=== PATIENT | female | born 1955 | race Caucasian/White ===

== ENCOUNTER 2020-04-08 05:11 | Inpatient (IN) ==
--- NOTE | 2020-03-11 11:39 | History & Physical Report ---
Date of Service March 11, 2020 date of surgery: 04-08-20 Procedure: Right total knee replacement Assessment & Plan (1) Arthritis of right knee: Risks and benefits of procedure discussed in detail today, patient would like to proceed with a Right total knee replacement at [facility] as scheduled. will obtain medical clearance and cardiac clearance prior to surgery, she has h/o ASD in approximately 1999, as well as obtain PATs at [facility]. Will place on ASA 81mg po bid x 1 month post op, f/u 2 weeks post op for routine post-operative care and x-ray, sooner if having any problems. will make arrangements for HHPT at the time of discharge. At this point in time, has failed conservative measures and would like to proceed with surgical intervention. History of Present Illness Chief Complaint: Right knee pain Primary Care Provider: Amauri Martin Ms Cooley is a 64 year old female who is here for a follow up of right knee pain, presents for pre-op evaluation prior to a Right total knee replacement at [facility]. Her symptoms occur constantly with intermittent worsening. Currently the patient states that the symptoms are moderate-severe. The pain is described as aching, sharp and throbbing. The symptoms occur continuously. She rates her current pain as 5/10. The symptoms are aggravated by ascending stairs, descending stairs, daily activities, driving, first steps while awake, kneeling, movement, repetitive activities, sleeping on the affected side, squatting, standing, walking and weight bearing. In addition to right knee pain the patient is also experiencing decreased mobility, difficulty bending, difficulty going to sleep, limping, nighttime awakening, pain, stiffness, tenderness and weakness. Prior NSAIDs include Celebrex and Advil. Patient has been treated with previous visco supplementation, Synvisc One. Patient has had previous therapy. she has failed conservative measures and would like to proceed with a right TKA. Allergies Allergy/AdvReac Type Severity Reaction Status Date / Time adhesive Allergy Unknown BUBBLES ON Verified 10/01/19 11:48 SKIN, ITCHY, WELTS succinylcholine Allergy Unknown SEE NOTES Verified 10/01/19 11:48 BELOW azithromycin AdvReac Unknown STOMACH Verified 10/01/19 11:48 UPSET erythromycin base AdvReac Unknown STOMACH Verified 10/01/19 11:48 UPSET Home Medications Home Medications Medication Instructions Recorded Confirmed Type albuterol sulfate [Proventil HFA] 2 inh INHALATION UD PRN 10/01/19 10/01/19 History celecoxib [Celebrex] 200 mg PO BID 10/01/19 10/01/19 History cholecalciferol (vitamin D3) 50 mcg PO DAILY 10/01/19 10/01/19 History [Vitamin D3] coenzyme Q10 [CoQ-10] 100 mg PO DAILY 10/01/19 10/01/19 History fluticasone propion-salmeterol 2 puff INHALATION BID 10/01/19 10/01/19 History [Advair HFA] glucos sul [id number] 3 cap PO DAILY 10/01/19 10/01/19 History [Glucosamine Chondroitin] hydrochlorothiazide 12.5 mg PO Q2D 10/01/19 10/01/19 History hydrochlorothiazide 25 mg PO Q2D 10/01/19 10/01/19 History levothyroxine [Synthroid] 175 mcg PO QAM 10/01/19 10/01/19 History omeprazole 20 mg PO UD PRN 10/01/19 10/01/19 History phentermine 37.5 mg PO QAM 10/01/19 10/01/19 History potassium gluconate 595 mg PO DAILY 10/01/19 10/01/19 History Past Med/Surg History Medical History Arthritis Asthma Advair BID, albuterol 3-4x per week, depends on activity level and weather Fear of anesthetic FEAR OF SPINAL, FEAR OF WAKING UP TOO SOON , ANXIOUS BEFORE PROCEDURES Hearing loss LIMITED - R Heart valve regurgitation Mild TR on 2016 echo per cardio note Heartburn OCC, DIETARY DEPENDANT - OMEPRAZOLE PRN History of atrial septal defect Lumbar spinal stenosis Obesity Pulmonary hypertension Thyroid disease Thyroid nodule DX AUG 2019 Vitamin D deficiency Surgical History Family history of reaction to anesthesia SISTER - CARDIAC ARREST AFTER SUCCINYLCHOLINE - WAS TOLD BY ANESTHESIOLOGIST THAT NONE OF HER FAMILY SHOULD HAVE SUCCINYLCHOLINE History of appendectomy History of cardiac cath 1999 - PRIOR TO OPEN HEART SURGERY History of colonoscopy History of ear surgery R History of heart surgery OPEN HEART FOR ASD REPAIR , HAD TEMPORARY PACEMAKER AND REMOVED BEFORE DISCHARGE History of tonsillectomy Nausea and vomiting after administration of anesthetic agent Family History Sister Family history of rheumatoid arthritis Brother Family history of rheumatoid arthritis Sister Family history of colon cancer Other Family history of osteoporosis in mother Social History Smoking Status: Never smoker Hx Alcohol Use: Yes Hx Substance Use: No Preferred Language: Portuguese Communication Ability: Effective Engineering Clerk Required: No Beliefs That Will Affect Care: None Current Living Situation: Significant Other Feels Safe at Home: Yes Review of Systems Review of Systems: All systems reviewed & are unremarkable except as noted in HPI & below Constitutional: no fever, no chills and no sweats Respiratory: no cough and no dyspnea Cardiovascular: no chest pain, no dyspnea and no orthopnea Gastrointestinal: no abdominal pain, no nausea and no vomiting Musculoskeletal: as per Subjective / HPI Physical Exam Physical Exam: Ht: 5ft 8in Wt: 108.8kg BP: 146/82 Pulse: 90 Constitutional: WD/WN, vitals as above no acute distress Respiratory: normal respiratory effort, lungs clear to auscultation no respiratory distress, no labored breathing and does not use accessory muscles Cardiovascular: RRR, no murmur, no edema Gastrointestinal (Abdomen): normal bowel sounds, soft, nontender, no hepatosplenomegaly Musculoskeletal: Knee: + knee abnormal to inspection (Right knee- ), + effusion (+1 effusion), + limited ROM of knee (ROM 0/3/110), + knee ROM with crepitation, + joint line tenderness (medial joint line) and + Corey's sign positive; no deformity, no skin erythema, no ecchymosis, no valgus laxity, no varus laxity, anterior drawer test negative, Edith's sign negative and pivot shift test negative Results & Data Results & Data ([facility]) Diagnostic Findings Right Knee X-ray 09/13/19 showing advanced degenerative changes to the right knee, narrowing of the medial compartment and patello-femoral joint with patellar spurring noted, findings showing joint space narrowing of the medial compartment and patello-femoral joint, osteophyte formation and subchondral scle rosis noted. overall varus alignment. no acute bony pathology noted.
--- NOTE | 2020-04-06 10:08 | Anesthesiology Consultation ---
Date of Service April 06, 2020 Assessment & Plan (1) Encounter for pre-operative examination: Chart Review Chart Review: Acceptable Risk for Surgery (pending preop Covid testing 04/03 and anesthesia eval AM of surgery) and Patient NOT seen in Pre Admission Testing Pt has presumed succinylcholine allergy due to sister having cardiac arrest due to med. Was told she should never have succinylcholine. 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 Pt is hesitant about having SAB per records. Will leave to anesthesiologist's discretion after discussion with patient AM of surgery on type of anesthesia to be done. -Pt's surgery initially scheduled in October 2019- rescheduled due to Covid. Per nursing assessment 04/03/2020, patient resides in [facility]. Travels only to [facility] for medical appts. Uses PPE. Scheduled for preop Covid testing 04/03/20 PCP note 10/16/19= Pt cleared by cardio yesterday for upcoming surgery. "I believe patient to be an acceptable risk for surgery." Seen by cardio 10/15/19= "she has no cardiac symptoms, had a benign cardiac examination today, was clinically euvolemic and has reasonable functional status, despite her severely arthritic knees. We should proceed with her surgery, excepting the cardiovascular risk involved. Ischemic evaluation is not merited." HTN management deferred to PCP. History Surgery Operation Date: 04/08/20 07:00 Proposed Procedures p Right Total Knee Arthroplasty - Carlos Olvera, Height/Weight Height: 5 ft 8 in Weight: 90.718 kg Allergies Allergy/AdvReac Type Severity Reaction Status Date / Time adhesive Allergy Unknown BUBBLES ON Verified 04/03/20 12:52 SKIN, ITCHY, WELTS succinylcholine Allergy Unknown SEE NOTES Verified 04/03/20 12:52 BELOW azithromycin AdvReac Unknown STOMACH Verified 04/03/20 12:52 UPSET erythromycin base AdvReac Unknown STOMACH Verified 04/03/20 12:52 UPSET Medications Home Medications Medication Instructions Recorded Confirmed Last Taken albuterol sulfate [Proventil HFA] 2 inh INHALATION UD PRN 10/01/19 04/03/20 Unknown celecoxib [Celebrex] 200 mg PO BID 10/01/19 04/03/20 Unknown cholecalciferol (vitamin D3) 50 mcg PO QAM 10/01/19 04/03/20 Unknown [Vitamin D3] coenzyme Q10 [CoQ-10] 100 mg PO QAM 10/01/19 04/03/20 Unknown fluticasone propion-salmeterol 2 puff INHALATION BID 10/01/19 04/03/20 Unknown [Advair HFA] glucos sul [id number] 3 cap PO DAILY 10/01/19 04/03/20 Unknown [Glucosamine Chondroitin] hydrochlorothiazide 12.5 mg PO UD 10/01/19 04/03/20 Unknown levothyroxine [Synthroid] 175 mcg PO QAM 10/01/19 04/03/20 Unknown omeprazole 20 mg PO UD PRN 10/01/19 04/03/20 Unknown phentermine 37.5 mg PO QAM 10/01/19 04/03/20 Unknown potassium gluconate 595 mg PO QAM 10/01/19 04/03/20 Unknown calcium carbonate [Calcium 600] 600 mg PO QAM 04/03/20 04/03/20 Unknown Past Medical History Medical History (Updated 04/06/20 @ 09:57 by Maida Daniel PA-C) Arthritis Asthma Advair BID, albuterol 3-4x per week, depends on activity level and weather Fear of anesthetic FEAR OF SPINAL, FEAR OF WAKING UP TOO SOON , ANXIOUS BEFORE PROCEDURES Hearing loss LIMITED - R Heart valve regurgitation Mild TR on 2015 echo per cardio note Heartburn OCC, DIETARY DEPENDANT - OMEPRAZOLE PRN Hypothyroidism Lumbar spinal stenosis Obesity Pulmonary hypertension Thyroid nodule DX AUG 2019- REFERRED TO ENDO Past Family History Family History Sister Family history of rheumatoid arthritis Brother Family history of rheumatoid arthritis Sister Family history of colon cancer Other Family history of osteoporosis in mother Past Surgical History Surgical History Family history of reaction to anesthesia SISTER - CARDIAC ARREST AFTER SUCCINYLCHOLINE - WAS TOLD BY ANESTHESIOLOGIST THAT NONE OF HER FAMILY SHOULD HAVE SUCCINYLCHOLINE History of appendectomy History of atrial septal defect repair of ASD History of cardiac cath 1999 - PRIOR TO OPEN HEART SURGERY History of colonoscopy History of ear surgery R History of heart surgery OPEN HEART FOR ASD REPAIR , HAD TEMPORARY PACEMAKER AND REMOVED BEFORE DISCHARGE History of tonsillectomy Hx of breast biopsy stage 0 of cancer and was removed and had radiation x 30 - finished 01/2020 Nausea and vomiting after administration of anesthetic agent Social History Smoking Status: Never smoker Do You Dip or Chew Tobacco: No Hx Alcohol Use: Yes alcohol intake frequency: holidays/special occasions only Hx Substance Use: No substance use type: does not use Testing Laboratory Results 03/12/20= WBC: 6.94 H/H: 13.2/38.7 PLATELETS: 293 SODIUM: 138 POTASSIUM: 3.5 CHLORIDE: 102 CO2: 29.1 BUN: 16.8 CREATININE: 0.71 GLUCOSE: 97 HGB A1C: 5.5 PT: 11.7 PTT: 34.5 INR: 1.02 UA: Trace blood, 30 UA protein, trace leukocyte esterase Electrocardiogram Date: 10/15/19 SR at [address]/T abnormality Chest X-Ray Date: 10/07/19 Findings: + NAD and + cardiomegaly (mild) Echocardiogram Date: 07/21/16 EF: 60% LV Function: normal RWMA: + none Normal RV size and systolic function. Mild TR, RV systolic pressure= 29mmHg. No obvious atrial septal defect seen and no shunt seen with color through the interatrial septum, agitated saline was not used.
[2020-04-08] MEDS ORDERED: CEFAZOLIN 2000MG 2,000 MG/15 ML SYR IV SCH (06:00)
[2020-04-08] MEDS ORDERED: TRANEXAMIC ACID 1,000 MG **IV Intra-op IV SCH (06:00)
[2020-04-08] MEDS ORDERED: GABAPENTIN 600 MG DOSE PO SCH (06:00)
[2020-04-08] MEDS ORDERED: CeleBREX 200 MG CAP PO SCH (06:00)
[2020-04-08] MEDS ORDERED: LR 15ML/HR IV SCH (06:00)
[2020-04-08] MEDS ORDERED: METOCLOPRAMIDE HCL 10 MG TABLET PO SCH (06:00)
[2020-04-08] MEDS ORDERED: ROPIVACAINE 0.5% HCL/PF 150 MG, BUPIVACAINE 0.5% MPF 30 ML, EPINEPHrine 30MG/30ML (OR U... INSTIL SCH (06:00)
[2020-04-08] MEDS ORDERED: ACETAMINOPHEN 500 MG TAB PO SCH (06:00)
[2020-04-08] MEDS ORDERED: dexAMETHasone 4 MG TAB PO SCH (06:00)
[2020-04-08] MEDS ORDERED: TRANEXAMIC ACID 1,000 MG **IV Pre-op IV SCH (06:00)
[2020-04-08] MEDS ORDERED: FAMOTIDINE 20 MG TAB PO SCH (06:00)
[2020-04-08] MEDS ORDERED: MIDAZOLAM HCL 1 MG/ML 2ML VIAL ONE (06:20)
[2020-04-08] MEDS ORDERED: fentaNYL citrate 100 MCG/2 ML VIAL ONE (06:20)
[2020-04-08] MEDS ORDERED: ONDANSETRON INJ 2 MG/ML 2 ML VIAL ONE (06:21)
[2020-04-08] MEDS ORDERED: PROPOFOL IV EMULSION 10 MG/ML 20 ML VIAL IV ONE (06:21)
[2020-04-08] MEDS ORDERED: LIDOCAINE HCL 2% 2 ML VIAL/AMP(20MG/ML) INFIL ONE (06:21)
[2020-04-08] MEDS ORDERED: ROPIVACAINE 0.5% 5 MG/ML 30 ML VIAL ONE (06:26)
[2020-04-08] MEDS ORDERED: BUPIVACAINE 0.5 % 5 MG/1 ML PF 10ML VIAL ONE (06:26)
[2020-04-08] MEDS ORDERED: ORTHO JOINT ANESTHETIC ONE (06:41)
[2020-04-08] MEDS ORDERED: BACITRACIN INJ 50,000 UNIT VIAL ONE (06:41)
[2020-04-08] MEDS ORDERED: ONDANSETRON INJ 2 MG/ML 2 ML VIAL IV PRN ×2 (06:50→11:15)
[2020-04-08] MEDS ORDERED: KETOROLAC 30 MG/ML VIAL IV PRN (06:50)
[2020-04-08] MEDS ORDERED: ATROPINE SULFATE 0.1 MG/ML 10ML SYR IV PRN (06:50)
[2020-04-08] MEDS ORDERED: HYDROmorphone INJ 1 MG/ML SYRINGE IV PRN ×2 (06:50→11:15)
[2020-04-08] MEDS ORDERED: ePHEDrine sulfate 50 MG/ML AMP IV PRN (06:50)
--- NOTE | 2020-04-08 07:11 | History & Physical Bridge Note ---
Date of Service April 08, 2020 History & Physical Bridge Note I have examined the patient, reviewed the History & Physical and in the interval since the performance of the History & Physical I have noted the following changes of clinical significance: no changes noted
--- NOTE | 2020-04-08 08:25 | Operative Report ---
Post Operative Report Pre & Post Diagnosis Operation Date: 04/08/20 07:00 Pre-Op Diagnosis: Unilateral Primary Osteoarthritis, Right Knee Post-Op Diagnosis: Unilateral Primary Osteoarthritis, Right Knee I identified the patient and participated in the time-out.: Yes Procedure Utilizing [employer] journey 2 patient matched total knee arthroplasty size 5 femur 4 tibia 11 polyethylene 32 oval patella Operation Date: 04/08/20 07:00 Actual Procedures p Right Total Knee Arthroplasty(Right) utilizing [employer] journey 2 patient matched total knee arthroplasty size 5 femur 4 tibia 11 polyethylene 32 oval patella- Carlos Olvera DO Surgeon Carlos Olvera DO Solutions Sales Consultant [employer] Estimated Blood Loss 5 Findings Consistent with Post-Op Diagnosis Patient presents severe end-stage DJD right knee varus alignment subchondral sclerosis marginal osteophytes eburnated [id number] with a moderate to large effusion no response to conservative management Specimens Bone and cartilage Drains Medium bore Hemovac Anesthesia Type MAC Spinal Regional Complications none Disposition Accompanied Patient To Recovery: No Disposition: Recovery Room Indications Patient presents with severe end-stage DJD right knee no response to conservative management clinic physical therapy anti-inflammatories relative rest activity modification corticosteroid injection Visco supplementation the above intraoperative findings are noted Description of Procedure After proper prepping and draping of the Right lower extremity anterior midline incision was made over the region of the extensor extensor mechanism after meticulous hemostasis was obtained and maintained in subcutaneous tissues a medi al parapatellar incision was made The patella was subluxed lateralward the medial lateral gutter were cleaned from any hypertrophic synovitis and scar tissue of the distal femoral block was placed and the distal femoral osteotomy cut was made subsequently the chamfers anterior and posterior osteotomy cuts were made utilizing the 4-in-1 block the tibia was subsequently subluxed anteriorward medial and ateral meniscal remnants were excised in their entirety remnants of the anterior and posterior cruciate ligaments were excised in their entirety excellent exposure of the proximal tibia was obtained the tibial osteotomy guide was placed on the proximal tibial osteotomy cut was made once again the knee was irrigated with copious amounts of sterile saline solution the patella was subsequently everted lateralward thickened scar tissue around the patella was removed the patella was subsequently cut utilizing a freehand technique and was drilled prepared for final preparation and placement of patella socially flexion-extension gaps were checked and the equal and symmetric trials were placed to the appropriate femoral and tibial trials with poly-spacer being placed for equal flexion and extension gaps and full range of motion including extension to 0 and flexion to 140 the trial components after having been taken to recovery range of motion was subsequently removed meticulous hemostasis was obtained and maintained subsequently a knee block injection of joint cocktail including ropivacaine 0.5% 150 mg. Bupivacaine 0.5% epinephrine 1-200,030 mL's toradol 30 mg dexamethasone 4 mg ketamine 10 mg clonidine 100 micrograms normal saline solution 30 mg was infiltrated into the soft tissues of the posterior knee medial lateral gutters and periosteal synovium special attention was paid to protect neurovascular structures at all times subsequently trial components having been removed the knee was irrigated with sterile saline solution. debris was removed the proximal tibia was subsequently prepared and was made ready for the placement of the tibial component tibial component was also cemented and tamped into position the femoral component was subsequently placed and cemented in the position the patellar component was subsequently cemented in position because hemostasis once again obtained and maintained wound having been thoroughly irrigated with debridement and debridement lavage was performed as well as a medial parapatellar incision closed with #1 Vicryl in interrupted fashion subcutaneous was closed with #2 Vicryl skin was closed with skin clips. PA-C was necessary for prepping and drapping as well as wound closure of deep fascia Sub cutaneous tissue and skin and was necessary for the case. A sterile compressive dressing was placed patient was taken to recovery in stable condition of report dictated by Wade I attest to the content of the Intraoperative Record and any orders documented therein. Any exceptions are noted below. I attest to the content of the Intraoperative Record and any orders documented therein. Any exceptions are noted below.
--- NOTE | 2020-04-08 08:26 | Operative Report ---
Post Operative Report Pre & Post Diagnosis Operation Date: 04/08/20 07:00 Pre-Op Diagnosis: Unilateral Primary Osteoarthritis, Right Knee Post-Op Diagnosis: Unilateral Primary Osteoarthritis, Right Knee I identified the patient and participated in the time-out.: Yes Procedure Operation Date: 04/08/20 07:00 Actual Procedures p Right Total Knee Arthroplasty(Right) utilizing [employer] journey 2 patient matched total knee arthroplasty size 5 femur 4 tibia 11 polyethylene 32 over patella- Carlos Olvera DO Surgeon Carlos Olvera DO Senior Systems Architect [employer] Estimated Blood Loss 5 Findings Consistent with Post-Op Diagnosis Patient presents with severe end-stage DJD eburnated bone subchondral sclerosis marginal osteophytes subchondral cystic changes varus alignment marginal moderate to large effusion Specimens Bone card Anesthesia Type MAC Spinal Regional Complications none Disposition Accompanied Patient To Recovery: No Disposition: Recovery Room Indications Patient presents after failed attempted conservative management the above intraoperative findings noted patient fell attempted corticosteroid injection Visco supplementation relative rest activity modification Description of Procedure After proper prepping and draping of the Right lower extremity anterior midline incision was made over the region of the extensor extensor mechanism after meticulous hemostasis was obtained and maintained in subcutaneous tissues a medial parapatellar incision was made The patella was subluxed lateralward the medial lateral gutter were cleaned from any hypertrophic synovitis and scar tissue of the distal femoral block was placed and the distal femoral osteotomy cut was made subsequently the chamfers anterior and posterior osteotomy cuts were made utilizing the 4-in-1 block the tibia was subsequently subluxed anteriorward medial and ateral meniscal remnants were excised in their entirety remnants of the anterior and posterior cruciate ligaments were excised in their entirety excellent exposure of the proximal tibia was obtained the tibial osteotomy guide was placed on the proximal tibial osteotomy cut was made once again the knee was irrigated with copious amounts of sterile saline solution the patella was subsequently everted lateralward thickened scar tissue around the patella was removed the patella was subsequently cut utilizing a freehand technique and was drilled prepared for final preparation and placement of patella socially flexion-extension gaps were checked and the equal and symmetric trials were placed to the appropriate femoral and tibial trials with poly-spacer being placed for equal flexion and extension gaps and full range of motion including extension to 0 and flexion to 140 the trial components after having been taken to recovery range of motion was subsequently removed meticulous hemostasis was obtained and maintained subsequently a knee block injection of joint cocktail including ropivacaine 0.5% 150 mg. Bupivacaine 0.5% epinephrine 1-200,030 mL's toradol 30 mg dexamethasone 4 mg ketamine 10 mg clonidine 100 micrograms normal saline solution 30 mg was infiltrated into the soft tissues of the posterior knee medial lateral gutters and periosteal synovium special attention was paid to protect neurovascular structures at all times subsequently trial components having been removed the knee was irrigated with sterile saline solution. debris was removed the proximal tibia was subsequently prepared and was made ready for the placement of the tibial component tibial component was also cemented and tamped into position the femoral component was subsequently placed and cemented in the position the patellar component was subsequently cemented in position because hemostasis once again obtained and maintained wound having been thoroughly irrigated with debridement and debridement lavage was performed as well as a medial parapatellar incision closed with #1 Vicryl in interrupted fashion subcutaneous was closed with #2 Vicryl skin was closed with skin clips. PA-C was necessary for prepping and drapping as well as wound closure of deep fascia Sub cutaneous tissue and skin and was necessary for the case. A sterile compressive dressing was placed patient was taken to recovery in stable condition of report dictated by Wade I attest to the content of the Intraoperative Record and any orders documented therein. Any exceptions are noted below. I attest to the content of the Intraoperative Record and any orders documented therein. Any exceptions are noted below.
--- NOTE | 2020-04-08 09:47 | XRay Report ---
RIGHT KNEE 2 VIEWS History: Right total knee arthroplasty. Degenerative arthritis. Postop. FINDINGS: The patient is status post a right total knee arthroplasty. The hardware is intact. No frac ture or dislocation. Skin tank and surgical drains are in place. IMPRESSION: Right total knee arthroplasty. No evidence for hardware complication. ACT 112: Negative or not required by law. Electronically signed by: Ken Calabrese M.D. 04/08/2020 9:45 AM
--- NOTE | 2020-04-08 10:46 | Anesthesiology Progress Note ---
Date of Service April 08, 2020 Anesthesia Post Procedure Vital Signs Vital Signs: Temp Pulse Pulse Resp BP Pulse Ox 04/08/20 10:25 79 19 119/63 93 04/08/20 10:15 77 1 L 112/59 L 97 04/08/20 10:05 80 13 121/62 96 04/08/20 09:55 36.5 C 87 19 111/78 97 04/08/20 09:45 76 13 122/71 97 04/08/20 09:35 89 12 123/76 93 04/08/20 09:25 82 20 133/69 97 04/08/20 09:15 86 18 125/68 97 04/08/20 09:05 36.6 C 94 H 18 114/60 98 04/08/20 05:41 37.2 C 99 H 20 168/88 H 97 Transfer of Care Handoff Completed per policy Notes Mental Status: alert / awake / arousable Patient Amnestic to Procedure: Yes Nausea / Vomiting: adequately controlled Pain: adequately controlled Airway Patency, RR, SpO2: stable & adequate BP & HR: stable & adequate Hydration State: stable & adequate Neuraxial Anesthesia: was administered and sensory block is resolving Anesthetic Complications: no major complications apparent
[2020-04-08] MEDS ORDERED: NON-FORMULARY MEDICATION (Potassium Gluconate 595 MG) PO SCH (10:52)
[2020-04-08] MEDS ORDERED: ALBUTEROL HFA 8 GM INHALER INH PRN (10:52)
[2020-04-08] MEDS ORDERED: NALOXONE HCL 0.4 MG/1 ML VIAL/CARP IV PRN (11:15)
[2020-04-08] MEDS ORDERED: ALUMINUM/MAGNESIUM SUSP 30 ML UDC PO PRN (11:15)
[2020-04-08] MEDS ORDERED: METOCLOPRAMIDE HCL INJ 5 MG/ML 2 ML VIAL IV PRN (11:15)
[2020-04-08] MEDS ORDERED: MAGNESIUM HYDROXIDE SUSP 30 ML UDC PO PRN (11:15)
[2020-04-08] MEDS ORDERED: bisacodyL 10 MG SUPP PR PRN (11:15)
[2020-04-08] MEDS: SODIUM CHLORIDE 0.9% 1000ML 1,000 ML IV SCH ×2 (11:17→19:59)
[2020-04-08] MEDS: KETOROLAC TROMETHAMINE 15 MG/ML VIAL IV SCH ×2 (13:00→17:58)
[2020-04-08] MEDS: ASPIRIN 81 MG ECTAB PO SCH ×2 (13:00→19:58)
[2020-04-08] MEDS: ACETAMINOPHEN 500 MG TAB PO SCH ×2 (13:05→21:25)
[2020-04-08] MEDS: CEFAZOLIN 2000MG 2,000 MG/15 ML SYR IV SCH ×2 (16:15→22:16)
[2020-04-08] MEDS: DOCUSATE SODIUM 100 MG CAP PO SCH (19:57)
[2020-04-08] MEDS ORDERED: SENNA 8.6 MG TAB PO SCH (21:00)
[2020-04-08] MEDS: ADVAIR INH SCH (21:24)
[2020-04-09] MEDS: KETOROLAC TROMETHAMINE 15 MG/ML VIAL IV SCH ×2 (00:28→06:13)
[2020-04-09 05:57] LABS: Hematocrit (blood only) 32.9 % (37-47); Mean Corpuscular Hemoglobin 28.6 pg (25-34); Mean Corpuscular Hgb Conc 33.4 g/dL (32-36); Mean Corpuscular Volume 85.5 fL (80-100); Mean Platelet Volume 9.2 fL (7.4-10.4); Platelet Count 244 K/uL (130-400); RDW Coefficient of Variation 13.7 % (11.5-14.5); RDW Standard Deviation 42.4 fL (36.4-46.3); Red Blood Count 3.85 M/uL (4.2-5.4)
[2020-04-09] MEDS: ACETAMINOPHEN 500 MG TAB PO SCH ×2 (06:14→14:24)
[2020-04-09] MEDS ORDERED: LEVOTHYROXINE SODIUM 175 MCG TABLET PO SCH (06:30)
[2020-04-09 06:37] LABS: BUN Creatinine Ratio 22.2 (10-20); Calcium 8.7 mg/dl (8.5-10.1); Creatinine Clr Calc Pharmacy 143.6 ml/min; Est GFR (African American) 115.8; Est GFR (Non-African American) 99.9
--- NOTE | 2020-04-09 06:58 | Orthopedic Progress Note ---
Date of Service April 09, 2020 Assessment & Plan (1) History of total right knee replacement: POD #1 s/p Right TKA pt/ot dvt proph with JUANJOSE/SCD/ASA plan for d/c home with OPPT, will recheck after PT today. Admission and Anticipated Discharge Date Admission Date: April 08, 2020 Subjective POD #1 s/p Right TKA Review of Systems Constitutional: no fever, no chills and no sweats Respiratory: no cough and no dyspnea Cardiovascular: no chest pain and no dyspnea Gastrointestinal: no abdominal pain, no nausea and no vomiting Physical Exam Physical Exam: Vital Signs Temp 36.6 C 04/09/20 03:59 Pulse 85 04/09/20 03:59 Resp 20 04/09/20 03:59 BP 109/64 04/09/20 03:59 Pulse Ox 97 04/09/20 03:59 Intake & Output 04/08/20 04/08/20 04/09/20 06:59 18:59 06:59 Intake Total 1400 / 3880 2480 / 3880 Output Total 185 / 1135 950 / 1135 Balance 1215 / 2745 1530 / 2745 Weight 122.4 kg Intake: IV 900 / 2770 1870 / 2770 Lr 1,000 ml @ 15 mls/hr IV . 700 / 700 Q24H [facility] Rx#:[id number] Nss 1000ML 1,0 00 ml @ 100 mls/ 1870 / 1870 hr IV .Q10H [facility] Rx#:[id number] TRANEXAMIC ACI D / 0.7% NACL 1, 200 / 200 000 mg In 100 ml @ 600 mls/hr IV TODAY@0600 [facility] Rx#:[id number] IV Perioperative 500 / 500 Oral 610 / 610 Output: Urine 625 / 625 Emesis 150 / 150 Estimated Blood Loss 5 / 5 Drain Output 30 / 355 325 / 355 Right Knee Hem ovac 30 / 355 325 / 355 Other: # Unmeasured Voi ds 1 1 # Emeses 1 Constitutional: WD/WN, vitals as above no acute distress Musculoskeletal: Right Leg: NVDI, calf SNT, negative candice sign. DP palpable, able to wiggle toes/ankle movement without difficulty. dressing clean dry and intact. Results & Data ([facility]) Vital Signs (Past 12 Hours) Vital Signs Temp Pulse Resp BP BP Pulse Ox 04/09/20 03:59 36.6 C 85 20 109/64 97 04/08/20 23:15 36.5 C 75 20 103/64 97 04/08/20 19:38 36.5 C 80 20 119/71 98 Laboratory Results Laboratory Results WBC 11.50 K/uL (4.8-10.8) H 04/09/20 05:37 RBC 3.85 M/uL (4.2-5.4) L 04/09/20 05:37 Hgb 11.0 g/dL (12.0-16.0) L 04/09/20 05:37 Hct 32.9 % (37-47) L 04/09/20 05:37 MCV 85.5 fL (80-100) 04/09/20 05:37 MCH 28.6 pg (25-34) 04/09/20 05:37 MCHC 33.4 g/dL (32-36) 04/09/20 05:37 RDW Std Deviation 42.4 fL (36.4-46.3) 04/09/20 05:37 RDW Coeff of Gayla 13.7 % (11.5-14.5) 04/09/20 05:37 Plt Count 244 K/uL (130-400) 04/09/20 05:37 MPV 9.2 fL (7.4-10.4) 04/09/20 05:37 Sodium 142 mmol/L (136-145) 04/09/20 05:37 Potassium 4.0 mmol/L (3.5-5.1) 04/09/20 05:37 Chloride 111 mmol/L (98-107) H 04/09/20 05:37 Carbon Dioxide 26 mmol/L (21-32) 04/09/20 05:37 Anion Gap 5.0 (3-11) 04/09/20 05:37 BUN 12 mg/dl (7-18) 04/09/20 05:37 Creatinine 0.56 mg/dl (0.6-1.2) L 04/09/20 05:37 Est Cr Clr Drug Dosing 143.6 ml/min 04/09/20 05:37 Est GFR ( Amer) 115.8 04/09/20 05:37 Est GFR (Non-Af Amer) 99.9 04/09/20 05:37 BUN/Creatinine Ratio 22.2 (10-20) H 04/09/20 05:37 Glucose 114 mg/dl (70-99) H 04/09/20 05:37 Calcium 8.7 mg/dl (8.5-10.1) 04/09/20 05:37 Blood Type O Negative 04/08/20 05:37 Antibody Screen NEGATIVE 04/08/20 05:37 Diagnostic Findings RIGHT KNEE 2 VIEWS History: Right total knee arthroplasty. Degenerative arthritis. Postop. FINDINGS: The patient is status post a right total knee arthroplasty. The chilo dware is intact. No fracture or dislocation. Skin tank and surgical drains are in place. IMPRESSION: Right total knee arthroplasty. No evidence for hardware complication.
[2020-04-09] MEDS ORDERED: CALCIUM 600MG + VIT D 400 IU TAB PO SCH (09:00)
[2020-04-09] MEDS ORDERED: MULTIVITAMIN TAB PO SCH (09:00)
[2020-04-09] MEDS ORDERED: FLUTICASONE/VILANTEROL 200/25MCG 14 PUFFS/INHALER INH SCH (09:00)
[2020-04-09] MEDS ORDERED: CeleBREX 200 MG CAP PO SCH (09:00)
[2020-04-09] MEDS: ADVAIR INH SCH (09:35)
[2020-04-09] MEDS: ASPIRIN 81 MG ECTAB PO SCH (09:36)
[2020-04-09] MEDS: DOCUSATE SODIUM 100 MG CAP PO SCH (09:37)
[2020-04-09] MEDS: OXYCODONE HCL IR 5 MG TAB (IMMEDIATE RELEASE) PO PRN ×2 (10:02→14:27)
--- NOTE | 2020-04-10 07:16 | Discharge Summary ---
Date of Service date of discharge: April 09, 2020 date of admission: 04-08-20 Admission HPI Per Admitting Provider Ms Cooley is a 64 year old female who is here for a follow up of right knee pain, presents for pre-op evaluation prior to a Right total knee replacement at [facility]. Her symptoms occur constantly with intermittent worsening. Currently the patient states that the symptoms are moderate-severe. The pain is described as aching, sharp and throbbing. The symptoms occur continuously. She rates her current pain as 5/10. The symptoms are aggravated by ascending stairs, descending stairs, daily activities, driving, first steps while awake, kneeling, movement, repetitive activities, sleeping on the affected side, squatting, standing, walking and weight bearing. In addition to right knee pain the patient is also experiencing decreased mobility, difficulty bending, difficulty going to sleep, limping, nighttime awakening, pain, stiffness, tenderness and weakness. Prior NSAIDs include Celebrex and Advil. Patient has been treated with previous visco supplementation, Synvisc One. Patient has had previous therapy. she has failed conservative measures and would like to proceed with a right TKA. Principal Diagnosis right knee osteoarthritis Discharge Exam Vital Signs Temp 36.7 C 04/09/20 15:35 Pulse 75 04/09/20 15:35 Resp 16 04/09/20 15:35 BP 119/71 04/09/20 15:35 Pulse Ox 97 04/09/20 15:35 Intake & Output 04/09/20 04/10/20 04/10/20 18:59 06:59 18:59 Intake Total 440 / 440 Output Total 100 / 100 Balance 340 / 340 Weight 122.4 kg Intake: Oral 440 / 440 Output: Drain Output 100 / 100 Right Knee Hemovac 100 / 100 Other: # Unmeasured Voids 1 Constitutional WD/WN, vitals as above no acute distress Musculoskeletal right knee: NVDI, calf SNT, negative candice sign. DP palpable, able to wiggle toes/ankle movement without difficulty. PAUL dressing clean dry and intact. expected post-operative bruising noted. Discharge Data Allergies Allergy/AdvReac Type Severity Reaction Status Date / Time adhesive Allergy Unknown BUBBLES ON Verified 04/08/20 05:41 SKIN, ITCHY, WELTS succinylcholine Allergy Unknown SEE NOTES Verified 04/08/20 05:41 BELOW azithromycin AdvReac Unknown STOMACH Verified 04/08/20 05:41 UPSET erythromycin base AdvReac Unknown STOMACH Verified 04/08/20 05:41 UPSET Consultations 04/08/20 10:52 Consult Case Management - Discharge Planning Routine Procedures Performed Operation Date: 04/08/20 07:00 Actual Procedures p Right Total Knee Arthroplasty(Right) - Carlos Olvera DO Ordered Studies 04/08/20 05:00 US - OR guided needle placemen Routine Hospital Course (1) History of total right knee replacement: POD #1 s/p Right TKA pt/ot dvt proph with JUANJOSE/SCD/ASA plan for d/c home with OPPT, will recheck after PT today. Laboratory Results WBC 11.50 K/uL (4.8-10.8) H 04/09/20 05:37 RBC 3.85 M/uL (4.2-5.4) L 04/09/20 05:37 Hgb 11.0 g/dL (12.0-16.0) L 04/09/20 05:37 Hct 32.9 % (37-47) L 04/09/20 05:37 MCV 85.5 fL (80-100) 04/09/20 05:37 MCH 28.6 pg (25-34) 04/09/20 05:37 MCHC 33.4 g/dL (32-36) 04/09/20 05:37 RDW Std Deviation 42.4 fL (36.4-46.3) 04/09/20 05:37 RDW Coeff of Gayla 13.7 % (11.5-14.5) 04/09/20 05:37 Plt Count 244 K/uL (130-400) 04/09/20 05:37 MPV 9.2 fL (7.4-10.4) 04/09/20 05:37 Sodium 142 mmol/L (136-145) 04/09/20 05:37 Potassium 4.0 mmol/L (3.5-5.1) 04/09/20 05:37 Chloride 111 mmol/L (98-107) H 04/09/20 05:37 Carbon Dioxide 26 mmol/L (21-32) 04/09/20 05:37 Anion Gap 5.0 (3-11) 04/09/20 05:37 BUN 12 mg/dl (7-18) 04/09/20 05:37 Creatinine 0.56 mg/dl (0.6-1.2) L 04/09/20 05:37 Est Cr Clr Drug Dosing 143.6 ml/min 04/09/20 05:37 Est GFR ( Amer) 115.8 04/09/20 05:37 Est GFR (Non-Af Amer) 99.9 04/09/20 05:37 BUN/Creatinine Ratio 22.2 (10-20) H 04/09/20 05:37 Glucose 114 mg/dl (70-99) H 04/09/20 05:37 Calcium 8.7 mg/dl (8.5-10.1) 04/09/20 05:37 Blood Type O Negative 04/08/20 05:37 Antibody Screen NEGATIVE 04/08/20 05:37 Total Time Total Time Spent Total Time Spent (In Minutes): 20 Total Time Includes: Examination of the Patient, Discharge Planning and Medication Reconciliation Discharge Plan Discharge Items Patient Disposition: Home - Self-Care Reason For Visit: Unilateral Primary Osteoarthritis, Right Knee Discharge Diagnosis: Right total knee replaceemnt Activity: Per Instructions section Lifting: Wait until after follow-up appointment Weightbearing Comment: WBAT with walker Non-emergency contact: Surgeon Call non-emergency contact if: you have any medication questions, your temperature is above 101, your wound has increased redness, your wound has increased drainage and your wound pain has increased Follow-up/Referrals: Amauri Martin D.O. [Primary Care Provider] - Diet: Regular Addtl Attending Provider Instructions: ACTIVITY RECOMMENDATIONS: SELF CARE INSTRUCTIONS AFTER TOTAL KNEE REPLACEMENT A. You may need to continue a physical therapy program after discharge from the hospital. There are several options available to you. Your doctor will assist you in selecting the best one for you. 1. An out-patient facility 2 to 3 times a week for therapy or home therapy. 2. Continue working on all exercises taught to you in the hospital. Your goals should be to increase bending of your knee to 90 degrees and beyond and to fully straighten your knee. B. You may progress at your own pace from walking with a walker or crutches to a cane; then to no assistive devices. C. Make walking a part of your daily routine. Be up as much as comfortable with rest periods throughout the day. Rest with leg elevation is very important. Use the ice wrap frequently for the first 3-4 weeks. D. There are no restrictions on activities. You may ride in a car, shop, participate in senior bi developer and all social activities. E. Wear the long elastic stockings (JUANJOSE hose) 20 hours a day for 2 weeks after surgery. They can be removed several times a day for laundering and for a bath. F. You may shower, no tub baths until cleared by your doctor. SPECIAL CARE INSTRUCTIONS: VERY IMPORTANT TO READ AND REVIEW A. There are a few signs you need to watch for after you are home. Call [facility] if you notice any of the followin. Increased severe knee pain. Some pain is expected especially when you exercise. 2. Increased swelling in your leg or knee; pain or swelling of the calf muscle in either lower leg. 3. Any fluid drainage from the incision. 4. Shortness of breath or chest pain. B. Please call [facility] at if you have any concerns or questions about your operation or recovery. The doctor or his nurse will return your call promptly. C. You must take antibiotics before dental work, bladder, bowel or other surgery. Your doctor will provide you with a permanent care to carry describing this precaution. IMPORTANT: * REMEMBER TO TAKE ASPIRIN, 81 MG, TWICE DAILY FOR 4 WEEKS UNLESS OTHERWISE DIRECTED. THIS IS YOUR BLOOD THINNER. * HIGH RISK PATIENTS MAY BE PRESCRIBED A STRONGER BLOOD THINNER. THIS WILL BE PROVIDED AT DISCHARGE. * CALL IF INCREASED PAIN, REDNESS, DRAINAGE OR FEVER GREATER THAT 101. * WEAR JUANJOSE HOSE 20 HOURS PER DAY FOR 2 WEEKS. * PAUL Dressing- This is a large suction dressing covering your incision. This will help pull any excess drainage from the wound and allow your incision to heal properly. You may shower with this if you can keep the unit outside of the shower. If any bleeding or leakage is noted please call your doctor's office. This will remain on your incision for 7 days and then should be removed. This can be done yourself or by the home nursing staff if applicable. The entire unit is disposable once removed. Once removed, keep incision clean and dry. If redness or drainage is noted, please call your surgeon. IF INCISION IS LEAKING THROUGH DRESSING, CALL THE OFFICE . FOLLOW UP VISIT: If appointment is not already scheduled: Please call [facility] to make a follow-up appointment for 2 weeks after your surgery at . Pending Studies at Discharge: No Stand-Alone Forms: My [facility], Opioid Pain Management, Smoking Cessation Medications and DC Order Prescriptions: New celecoxib [Celebrex] 200 mg Capsule 200 mg PO BID 30 Days Qty: 60 RF: 0 aspirin 81 mg Tablet,Delayed Release (Dr/Ec) 81 mg PO BID 30 Days Qty: 60 RF: 0 acetaminophen 500 mg Tablet 1,000 mg PO Q8 21 Days Qty: 126 RF: 0 oxycodone 5 mg Tablet 5 - 10 mg PO Q6H PRN (Reason: pain) Qty: 30 RF: 0 docusate sodium 100 mg Capsule 100 mg PO BID 10 Days Qty: 20 RF: 0 cefadroxil 500 mg capsule 500 mg PO BID 10 Days Qty: 20 RF: 0 Continued levothyroxine [Synthroid] 175 mcg Tablet 175 mcg PO QAM RF: 0 albuterol sulfate [Proventil HFA] 90 mcg/actuation Hfa Aerosol Inhaler 2 inh INHALATION UD PRN (Reason: ASTHMA) RF: 0 phentermine 37.5 mg Capsule 37.5 mg PO QAM RF: 0 Advair HFA 230-21 mcg/actuation Hfa Aerosol Inhaler 2 puff INHALATION BID RF: 0 hydrochlorothiazide 12.5 mg Tablet 12.5 mg PO UD RF: 0 potassium gluconate 595 mg (99 mg) Tablet 595 mg PO QAM RF: 0 cholecalciferol (vitamin D3) [Vitamin D3] 50 mcg (2,000 unit) Capsule 50 mcg PO QAM RF: 0 omeprazole 20 mg Capsule,Delayed Release(Dr/Ec) 20 mg PO UD PRN (Reason: Heartburn) RF: 0 calcium carbonate [Calcium 600] 600 mg calcium (1,500 mg) Tablet 600 mg PO QAM RF: 0 Discontinued celecoxib [Celebrex] 200 mg Capsule 200 mg PO BID RF: 0 coenzyme Q10 [CoQ-10] 100 mg Capsule 100 mg PO QAM RF: 0 Glucosamine Chondroitin 550-30-1 mg Capsule 3 cap PO DAILY RF: 0 Discharge Orders: Discharge Order (Routine); Ordered 04/09/20 Ordered By: Ismael Lopez/Other Patient Handouts: Preventing Deep Vein Thrombosis Admission Data Admit Date/Time: 04/08/20 15:06 Attending Provider: Carlos Olvera Admit Provider: Carlos Olvera Primary Care Provider: Amauri Martin Other Interventions: Discharge Summary Assessment (RN) Last Done: 04/09/20 15:35
== END 2020-04-09 18:05 | disposition home or self-care (01) | DRG 470 ==
LOC: 3E 05:11 → ASU 05:11